=== PATIENT | male | born 1945 | race Hispanic/Latino ===

== ENCOUNTER 2019-03-26 16:28 | Emergency (ER) | payer MEDICARE ==
[2019-03-26 17:01] LABS: APPEARANCE,URINE Clear (CLEAR); BILIRUBIN,URINE Negative (NEGATIVE); COLOR,URINE Yellow (YELLOW); GLUCOSE, URINE (UA) Negative (NEGATIVE); KETONES,URINE Negative (NEGATIVE); LEUKOCYTE ESTERASE ,URINE Negative (NEGATIVE); NITRATE,URINE Negative (NEGATIVE); OCCULT BLOOD,URINE Small (NEGATIVE); PROTEIN,URINE Negative (NEGATIVE)
[2019-03-26 17:25] LABS: BACTERIA,URINE Rare /HPF (None Seen); RBC,URINE 0-1 /HPF (0-1); SQUAMOUS EPITHELIAL CELL,UR Rare /HPF (0-2); WBC,URINE 0-1 /HPF (0-1)
== END 2019-03-26 17:44 | disposition home or self-care (01) ==
LOC: EDH 16:28
DX: R30.0 Dysuria (principal); R35.0 Frequency of micturition; I10 Essential (primary) hypertension
CPT/HCPCS: 81001